=== PATIENT | female | born 1990 | race Hispanic/Latino ===

== ENCOUNTER 2017-11-06 21:20 | Inpatient (IN) | payer BC ==
[2017-11-06 21:48] VITALS: BMI 35.2
[2017-11-06] MEDS ORDERED: LR / Pitocin 40 units/1000 ml 1,000 ML IV PRN (22:05)
[2017-11-06] MEDS ORDERED: Carboprost 250 MCG/ML AMP IM PRN (22:05)
[2017-11-06] MEDS ORDERED: Ondansetron HCl/PF 4 MG/2 ML Vial IVP PRN (22:05)
[2017-11-06] MEDS ORDERED: Ibuprofen 800 MG TAB PO PRN (22:05)
[2017-11-06] MEDS ORDERED: Misoprostol 200 MCG TAB PR PRN (22:05)
[2017-11-06] MEDS ORDERED: Lidocaine 1% (PF) 30 ML VIAL SC PRN (22:05)
[2017-11-06] MEDS: Lactated Ringer's 1,000 ML IV SCH (22:20)
[2017-11-06 22:27] LABS: Mean Platelet Volume 8.5 fL (7.4-10.4); Red Blood Cell (RBC) Count 4.39 mill/uL (4.20-5.40); White Blood Cell (WBC) Count 10.9 thou/uL (4.8-10.8)
[2017-11-06] MEDS ORDERED: Lactated Ringer's 1,000 ML IV SCH (22:30)
--- NOTE | 2017-11-06 23:49 | HP ---
DATE OF SERVICE: 11/06/2017 CHIEF COMPLAINT: Contractions. HISTORY OF PRESENT ILLNESS: At the time of presentation, Ms. Radha Butcher is a 27-year-old gravid a 2, para 1 female who is at 39 weeks and 3 days. She received care with Dr. Mota. She pr esents with complaints of contractions since this afternoon. She denies any vaginal bleeding or leak age of fluid and reports good movement. She denies any fever or chills. She denies any cardio vascular or respiratory complaints. She denies any GI or neurologic complaints. She denies any david turia or dysuria. REVIEW OF SYSTEMS: Per HPI. PAST MEDICAL HISTORY: Negative. PAST SURGICAL HISTORY: [place] teeth. OBSTETRICAL HISTORY: The patient has a history of 1 prior uncomplicated spontaneous vaginal delivery of a female weighing 7 pounds 9 ounces. MEDICATIONS: None. ALLERGIES: No known drug allergies. PHYSICAL EXAMINATION: VITAL SIGNS: Temperature 98.4, pulse 80, respiratory rate 18, blood pressure 127/78. GENERAL: Nontoxic appearing female in moderate amount of distress with contractions. HEENT: Normocephalic, atraumatic. LUNGS: Clear to auscultation. CARDIOVASCULAR: Regular rate and rhythm. ABDOMEN: Gravid, nontender, nondistended, no rebound, no guarding. GENITOURINARY: Cervix was examined by the nurse and found to be 7 cm dilated, 100% effaced, 0 statio n with bulging bag of water. OBSTETRIC: There is category 1 tracing with tocodynamometer showing contractions every 4 minut es. ASSESSMENT AND PLAN: Term intrauterine with category 1 tracing in active labor. Plan will be for expectant management with amniotomy as indicated. The patient is group B strep nega tive. I have been asked for Dr. Mota to manage and deliver the patient.
[2017-11-07] MEDS ORDERED: Milk Of Magnesia 30 ML UDCUP PO PRN (04:01)
[2017-11-07] MEDS ORDERED: LR / Pitocin 40 units/1000 ml 1,000 ML IV SCH (04:01)
[2017-11-07] MEDS ORDERED: Bisacodyl 10 MG SUPP PR PRN (04:01)
[2017-11-07] MEDS ORDERED: Ketorolac Tromethamine 30 MG/ML VIAL IVP SCH (04:15)
[2017-11-07] MEDS ORDERED: Adacel (T-DAP) 0.5 ML VIAL IM ONE (04:15)
--- NOTE | 2017-11-07 04:17 | OP ---
DATE OF SERVICE: 11/07/2017 STAGE I: At the time of presentation, Ms. Butcher is a G2, P1 at 39 weeks who presented in active la bor at 7 cm. She has spontaneous rupture of membranes and progressed to complete and pushing without an epidural. Stage II: There was controlled delivery of the head over an intact perineum. There was uncomplicate d delivery of shoulders and torso. had spontaneous cry. Mouth and nares were bulb suctioned. was placed on maternal abdomen. was a female born at 0129 hours on 11/07/2015 with A pgars of 8 and 9. Weight is pending. Stage III: There was uncomplicated delivery of an intact placenta with 3-vessel cord. There were mi ld abrasions, but no lacerations and nothing require repair. Estimated blood loss in the procedure w as 200 mL. Both mother and infant are stable in recovery.
[2017-11-07] MEDS: Ibuprofen 800 MG TAB PO SCH ×3 (06:22→21:34)
--- NOTE | 2017-11-07 08:25 | PDOC.PP ---
Post Progress Note Post Day #: 0 Subjective: no concerns, min bleeding, no pain Vital Signs (12 hours) Temp Pulse Resp BP 11/07/17 07:53 98.4 F 76 18 108/56 L 11/07/17 06:15 98.0 F 86 20 110/64 11/07/17 04:50 98.8 F 63 20 108/61 11/07/17 03:50 98.3 F 70 22 H 109/58 L 11/06/17 22:15 98.4 F 78 18 Weight Weight 205 lb - Physical Examination General: NAD Respiratory: non-labored breathing Abdominal: no distention Fundus firm & at: umbilicus Extremities: negative homans (B) Skin: CS incision dry & intact, no rash Neurological: no gross focal deficits Psychiatric: A&Ox3, normal affect Result Diagrams: 11/06/17 22:10 Additional Labs: Post Labs Hep Bs Antigen Non-Reactive S/CO (NonReactive) 11/06/17 22:10 (1) Vaginal delivery Code(s): O80 - ENCOUNTER FOR FULL-TERM UNCOMPLICATED DELIVERY Status: Acute - Assessment/Plan PPD0 plan for DC home tomorrow.
[2017-11-07] MEDS: Lactated Ringer's 1,000 ML IV SCH ×2 (09:01→18:03)
[2017-11-07] MEDS: Ferrous Sulfate 325 MG TAB PO SCH ×2 (09:01→18:03)
[2017-11-07] MEDS: Docusate (Surfak) 240 MG CAP PO SCH ×3 (09:02→21:36)
[2017-11-08] MEDS: Ibuprofen 800 MG TAB PO SCH ×3 (05:32→21:58)
--- NOTE | 2017-11-08 08:50 | DIS ---
DATE OF ADMISSION: 11/06/2017 DATE OF DISCHARGE: 11/08/2017 ADMITTING DIAGNOSIS: Active labor at term. DISCHARGE DIAGNOSIS: Active labor at term. PROCEDURE: Term spontaneous vaginal delivery. CONSULTATIONS: None. HOSPITAL COURSE: The patient is a 27-year-old female who on day of presentation was assessed to be i n active labor at term and was admitted for expectant management. The patient subsequently had an un complicated term spontaneous vaginal delivery and was subsequently transferred to the floor for postp artum care, is now day #1, the patient reports that she is tolerating p.o., voiding on her own, has good pain control and decreased lochia and desires discharge home. PHYSICAL EXAMINATION: VITAL SIGNS: Today, blood pressure 96/60, temperature 98.2, pulse of 79, respiratory rate of 18. GENERAL: She appears to be in no acute distress. She is alert and oriented, and cooperative and ple asant to interact with. HEAD: Normocephalic, atraumatic. ABDOMEN: Fundus is firm. EXTREMITIES: Nontender, nonedematous. DISCHARGE DISPOSITION: The patient will be discharged to home pending the baby's discharge. DISCHARGE INSTRUCTIONS: She has instructions to follow up with Dr. Mota in 6 weeks. She has also b een given instructions to seek medical attention sooner if she experiences increasing bleeding, pain, or fever. The patient is being discharged home on ibuprofen.
[2017-11-08] MEDS: Lactated Ringer's 1,000 ML IV SCH ×2 (09:42→14:35)
[2017-11-08] MEDS: Ferrous Sulfate 325 MG TAB PO SCH ×2 (09:42→15:23)
[2017-11-08] MEDS: Docusate (Surfak) 240 MG CAP PO SCH ×2 (09:47→21:59)
[2017-11-08] MEDS ORDERED: Measles/Mumps/Rubella 10 MCG/0.5 ML VIAL SC ONE (10:45)
[2017-11-09] MEDS: Lactated Ringer's 1,000 ML IV SCH ×2 (06:19→09:22)
[2017-11-09] MEDS: Ibuprofen 800 MG TAB PO SCH (06:19)
[2017-11-09 08:11] VITALS: BP 111/73; TEMP 97.9
[2017-11-09] MEDS: Ferrous Sulfate 325 MG TAB PO SCH (09:22)
[2017-11-09] MEDS: Docusate (Surfak) 240 MG CAP PO SCH (09:22)
== END 2017-11-09 10:45 | disposition home or self-care (01) | DRG 775 ==
LOC: L&D/OP 21:20 → L&D 22:05 → 3SW 11-07 03:51
PROVIDERS: ADMIT Obstetrics & Gynecology Obstetrics; ATTEND Obstetrics & Gynecology Obstetrics
PROC: 10E0XZZ Delivery of Products of Conception, External Approach (ICD-10-PCS; principal; 2017-11-07)
DX: O80 Encounter for full-term uncomplicated delivery (principal); Z37.0 Single live birth; Z3A.39 39 weeks gestation of pregnancy
CPT/HCPCS: 85027; 86780; 87340; 90707; 99285; J2001